=== PATIENT | male | born 1995 | race African-American/Black ===

== ENCOUNTER 2025-06-11 13:55 | Inpatient (IN) | payer OTHER ==
[2025-06-11 14:14] VITALS: BMI 21.2
[2025-06-11] MEDS ORDERED: hydrOXYzine PAMOATE 25 MG CAPSULE (FP) PO PRN (14:38)
[2025-06-11] MEDS ORDERED: guaiFENesin 600 MG TABLET.ER (FP) PO PRN (14:38)
[2025-06-11] MEDS ORDERED: MAGNESIUM HYDROX 2400MG/30ML ORAL SUSPENSION 30 ML CUP PO PRN (14:38)
[2025-06-11] MEDS ORDERED: METHOCARBAMOL 500 MG TABLET PO PRN (14:38)
[2025-06-11] MEDS ORDERED: NALOXONE (NARCAN) HCL 4 MG/0.1 ML SPRAY NS PRN (14:38)
[2025-06-11] MEDS ORDERED: BENZOCAINE/MENTHOL (CHLORASEPTIC ) LOZENGE MM PRN (14:38)
[2025-06-11] MEDS ORDERED: MAG HYDROX/AL HYDROX/SIMETH 30 ML UNIT-DOSE CUP PO PRN (14:38)
[2025-06-11] MEDS ORDERED: DICYCLOMINE HCL 10 MG CAPSULE PO PRN (14:38)
[2025-06-11] MEDS ORDERED: NICOTINE POLACRILEX 2 MG GUM BUC PRN (14:38)
[2025-06-11] MEDS ORDERED: IBUPROFEN 600 MG TABLET (FP) PO PRN (14:38)
[2025-06-11] MEDS ORDERED: ACETAMINOPHEN 325 MG TABLET (FP) PO PRN (14:38)
[2025-06-11] MEDS ORDERED: ONDANSETRON *ODT* 4 MG TABLET SL PRN (14:38)
[2025-06-11] MEDS ORDERED: POLYETHYLENE GLYCOL (HEALTHYLAX) 3350 17 GM PACKET PO PRN (14:38)
[2025-06-11] MEDS ORDERED: BENZONATATE 200 MG CAPSULE PO PRN (14:38)
[2025-06-11] MEDS ORDERED: LOPERAMIDE HCL 2 MG CAPSULE PO PRN (14:38)
[2025-06-11] MEDS ORDERED: BISMUTH SUBSALICYLATE 524 MG/30 ML PO PRN (14:38)
[2025-06-11] MEDS ORDERED: IBUPROFEN 400 MG TABLET (FP) PO PRN (14:38)
[2025-06-11] MEDS ORDERED: TETRAHYDROZOLINE HCL EYE DROPS OU PRN (14:40)
[2025-06-11] MEDS: THIAMINE 100 MG TABLET PO SCH (22:12)
[2025-06-11] MEDS: MELATONIN 5 MG TABLETS PO SCH (22:12)
[2025-06-12] MEDS: PRENATAL VITAMINS W/ FOLIC ACID TABLET (FP) PO SCH (10:55)
[2025-06-12 12:36] LABS: MCHC 31.9 g/dl (32.3-36.5); MEAN CELL VOLUME 92.1 fl (79.0-92.2); MEAN PLT VOLUME 9.5 fl (9.4-12.4); RDW 12.9 % (11.9-15.3)
[2025-06-12 13:17] LABS: GLUCOSE,RANDOM 77 mg/dL (74-106); TOT PROT 6.8 g/dl (6.4-8.2)
[2025-06-12 13:18] LABS: CO2 24 mmol/L (21-32)
[2025-06-12 13:20] LABS: ALK PHOS 79 U/L (40-150)
[2025-06-12 13:23] LABS: CREATININE 0.93 mg/dL (0.55-1.3); SGOT/AST 23 U/L (5-34); SGPT/ALT 17 U/L (0-55)
[2025-06-13 08:51] VITALS: BP 118/86; PULSE 76; RESP 17; TEMP 98.3
== END 2025-06-13 10:14 | disposition home or self-care (01) | DRG 776 ==
LOC: YASAS 13:55 → Y3N 15:30
PROVIDERS: ADMIT Psychiatry & Neurology Pain Medicine; ATTEND Allergy & Immunology
PROC: HZ2ZZZZ Detoxification Services for Substance Abuse Treatment (ICD-10-PCS; principal; 2025-06-11)
DX: F13.20 Sedative, hypnotic or anxiolytic dependence, uncomplicated (principal); F15.20 Other stimulant dependence, uncomplicated; F17.210 Nicotine dependence, cigarettes, uncomplicated; F31.9 Bipolar disorder, unspecified; F19.24 Other psychoactive substance dependence with psychoactive substance-induced mood disorder; F41.9 Anxiety disorder, unspecified; J30.2 Other seasonal allergic rhinitis
CPT/HCPCS: 36415; 80053; 80307; 85027; 86780; 93005; 93010